=== PATIENT | female | born 1970 | race Caucasian/White ===

== ENCOUNTER 2018-12-30 14:39 | Emergency (ER) | payer OTHER ==
[~2018-12-30] VITALS: Ht 162.6 cm; Wt 95.3 kg
[2018-12-30] MEDS ORDERED: IBUPROFEN 600 MG TABLET PO ONE ×2 (15:30)
[2018-12-30 15:33] VITALS: BP 134/74
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
--- NOTE | 2018-12-30 16:54 | NUR ---
PT TALKING WITH OFFICER ON PHONE
--- NOTE | 2018-12-30 17:38 | NUR ---
Patient discharged to home in stable condition. Written and verbal after care instructions given. Patient verbalizes understanding of instruction.
== END 2018-12-30 17:37 | disposition home or self-care (01) ==
LOC: ER 14:45
DX: S46.812A Strain of other muscles, fascia and tendons at shoulder and upper arm level, left arm, initial encounter (principal); Z59.0 Homelessness; Y08.89XA Assault by other specified means, initial encounter; Y93.89 Activity, other specified; Y92.89 Other specified places as the place of occurrence of the external cause; Y99.8 Other external cause status
CPT/HCPCS: 73030-TC

== ENCOUNTER 2022-08-21 17:43 | Emergency (ER) | payer OTHER ==
[~2022-08-21] VITALS: Ht 167.6 cm; Wt 104.3 kg
--- NOTE | 2022-08-21 18:00 | NUR ---
RECEIVED PT 51 YRS FAMILE CAME BY [facility] FOR ALOC AND HR FAST DROWSY ASLEEPY NO SOB
[2022-08-21] MEDS ORDERED: IV NS 0.9% 1,000 ML BAG IV ONE (19:00)
--- NOTE | 2022-08-21 19:35 | NUR ---
HAND OFF TO DELFINA CARR
--- NOTE | 2022-08-21 19:43 | NUR ---
R DREW #20G S/L BLOOD COLLECTED AND SENT TO LAB
--- NOTE | 2022-08-21 19:45 | NUR ---
SWAB FOR COVID19 AND RAPID INFLUENZA SENT TO LAB
[2022-08-21 20:00] LABS: BASOPHILS # (AUTO) 0.1 K/uL (0.0-0.2); BASOPHILS % (AUTO) 1.3 % (0.0-2.0); HEMATOCRIT 33 % (33-45); HEMOGLOBIN 10.2 g/dL (11.5-14.8); LYMPHOCYTES # (AUTO) 0.9 K/uL (0.8-4.8); LYMPHOCYTES % (AUTO) 11.1 % (20.0-44.0); MEAN CORPUSCULAR HGB CONC 31 g/dl (31.0-36.0); MEAN CORPUSCULAR VOLUME 79 fL (82-100); MONOCYTES # (AUTO) 0.7 K/uL (0.1-1.30); MONOCYTES % (AUTO) 8.8 % (2.0-12.0); NEUTROPHILS # (AUTO) 5.6 K/uL (1.8-8.9); NEUTROPHILS % (AUTO) 71.8 % (43.0-81.0); PLATELET COUNT (AUTO) 377 K/uL (150-450); RED BLOOD CELL COUNT(AUTO) 4.18 MIL/uL (4.0-5.2); WHITE BLOOD COUNT (AUTO) 7.8 K/uL (4.3-11.0)
[2022-08-21 20:05] LABS: CALCIUM, SERUM 8.3 mg/dL (8.5-10.1); CARBON DIOXIDE 32 mmol/L (21-32); CHLORIDE 102 mmol/L (98-107); CREATININE 0.8 mg/dL (0.6-1.3); GLUCOSE 100 mg/dL (74-106); POTASSIUM 3.7 mmol/L (3.5-5.1); SODIUM SERUM 139 mmol/L (136-145); UREA NITROGEN, BLOOD 8 mg/dL (7-18)
[2022-08-21 20:23] LABS: ALANINE AMINOTRANSFERASE 25 U/L (12-78); ALCOHOL, BLOOD < 3 mg/dL (0-0); ALKALINE PHOSPHATASE 80 U/L (46-116); ASPARTATE AMINOTRANSFERASE 34 U/L (15-37); BILIRUBIN,DIRECT 0.1 mg/dL (0.0-0.2); BILIRUBIN,TOTAL 0.3 mg/dL (0.2-1.0)
--- NOTE | 2022-08-21 20:52 | NUR ---
PATIENT TAKEN TO CT VIA CAR
[2022-08-21] MEDS ORDERED: TYL2T PO (21:55)
[2022-08-21] MEDS ORDERED: IBUP-1953 PO (21:55)
[2022-08-21 22:03] VITALS: BP 144/85
--- NOTE | 2022-08-21 22:08 | NUR ---
Patient discharged In stable condition. RX Written and verbal after care instructions given. Patient verbalizes understanding of instruction. pt ambulatory with a steady gait
== END 2022-08-21 22:10 | disposition home or self-care (01) ==
LOC: ER 17:51
DX: U07.1 COVID-19 (principal); M79.10 Myalgia, unspecified site; Z59.01 Sheltered homelessness; D50.9 Iron deficiency anemia, unspecified
CPT/HCPCS: 99284; 96360; 87804; 85025; 80048; 80076; 85378; 36415; 84484; 87426; 80143; 80320; J7030; C9803; G0480